=== PATIENT | female | born 1995 | race Two or more races ===

== ENCOUNTER 2017-02-13 19:59 | Emergency (ER) | payer OTHER ==
[2017-02-13 20:26] LABS: URINE BILIRUBIN NEGATIVE (NEGATIVE); URINE BLOOD NEGATIVE (NEGATIVE); URINE GLUCOSE (UA) NEGATIVE (NEGATIVE); URINE LEUKOCYTE ESTERASE 1+ (NEGATIVE); URINE NITRITE POSITIVE (NEGATIVE); URINE PROTEIN NEGATIVE (NEGATIVE); URINE UROBILINOGEN NORMAL (0-1 mg/dl)
[2017-02-13 20:28] LABS: URINE APPEARANCE CLEAR; URINE COLOR YELLOW
[2017-02-13 20:29] LABS: HCG,QUALITATIVE URINE NEGATIVE
[2017-02-13 20:32] LABS: URINE BACTERIA 4+; URINE EPITHELIAL CELLS 0-1 /hpf; URINE RBC 0 /hpf; URINE WBC 0-2 /hpf
[2017-02-13] MEDS ORDERED: PHENAZOPYRIDINE HCL 200 MG TABLET ONE (21:03)
[2017-02-13] MEDS ORDERED: ONDANSETRON 4 MG ODT TAB ONE (21:03)
[2017-02-13] MEDS ORDERED: CEPHALEXIN 500 MG CAPSULE ONE (21:03)
== END 2017-02-13 21:12 | disposition home or self-care (01) ==
LOC: ED 19:59
DX: N39.0 Urinary tract infection, site not specified (principal)
CPT/HCPCS: 81025; 87086; 87186; 81001; 99283 ×2; A9270 ×3